=== PATIENT | male | born 1975 | race Hispanic/Latino ===

== ENCOUNTER 2024-01-29 12:00 | Emergency (ER) | payer OTHER, SELFPAY ==
[2024-01-29 12:01] VITALS: BP 135/84; PULSE 68; RESP 16; TEMP 36.8; O2SAT 99; BMI 28.6
--- NOTE | 2024-01-29 12:08 | EKG12_ITS ---
Test Reason : CP Blood Pressure : / mmHG Vent. Rate : 063 BPM Atrial Rate : 063 BPM P-R Int : 146 ms QRS Dur : 088 ms QT Int : 378 ms P-R-T Axes : 056 -17 016 degrees QTc Int : 386 ms Normal sinus rhythm Normal ECG Confirmed by HERIBERTO HALL, DALI ([id number]), movie editor KARINA KENNY ([id number]) on 02/01/2024 11:40:19 AM Referred By: Confirmed By:DALI LOUIS MD
--- NOTE | 2024-01-29 12:11 | NURSING ---
NO OLD EKGS
--- NOTE | 2024-01-29 12:24 | ED.VIS.CHEST ---
HPI History of Present Illness Chief Complaint: Chest Pain Detail of Chief Complaint: Left sided fleeting chest pain Informant: patient Onset/Context/Timing Onset: Yesterday Activity at onset: sudden and onset (Occurred at rest with first episode) Timing: Intermittent and Lasts (2 to 3 seconds) Quality: Positive for - (Electrical shock) Location: Left Chest Current Severity: Gone Maximum Severity: Mild Worsened By: Nothing Relieved By: Nothing Associated Symptoms: Positive for - (Patient does have history of heartburn. He takes medication daily.); Negative for Nausea, Vomiting, Diaphoresis, Dyspnea, Cough, Fever, Lightheadedness, Acid Reflux or Palpitations Narrative Narrative: Patient is a 48-year-old male. He is a non-smoker. He has no history of VTE or any risk factors for VTE. He presents with fleeting electrical shocklike symptoms left side the chest. He has no associated symptoms. Has no radiation. There is no history of trauma. He did have upper respiratory infectious symptoms 2 to 3 weeks ago. He denies nausea, vomit diarrhea. He denies any alleviating, precipitating or exacerbating factors. He denies GI symptoms i.e. change in bowels and specifically color or consistency or caliber. Prior Similar Symptoms: No Recent Illness/Hospitalization: No CVD Risk Factors: Negative for Hypertension, Diabetes, Hypercholesterolemia, Family History 1' </=55 or Smoking PE Risk Factors: Negative for Recent Travel/Surgery, Recent Immobilization, Prior DVT or PE, Cancer or OCP + Smoking + >/=35 TAD Risk Factors: Negative for Marfan's Syndrome, Hypertension or Family History [facility] Medical History (Updated 01/29/24 @ 12:[address] Jeffrey Melendrez MD) Heartburn Home Medications ?Medication ?Instructions ?Recorded ?Last Taken ?Type naproxen 500 mg tablet 500 mg PO BID #14 tabs 01/29/24 Unknown Rx Allergy/AdvReac Type Severity Reaction Status Date / Time No Known Allergies Allergy Verified 01/29/24 12:02 Social History (Updated 01/29/24 @ 12:[address] Jeffrey Melendrez MD) household members: spouse Smoking Status: Never smoker alcohol intake: current alcohol intake frequency: holidays/special occasions only ROS ROS ED Constitutional Constitutional ED: Denies chills, fever(s), subjective or sweats Eyes Eyes: Reports none ENT ENT ED: Denies rhinorrhea or sore throat Cardiovascular Cardiovascular: Reports as per HPI; Denies orthopnea or paroxysmal nocturnal dyspnea Respiratory/Chest Respiratory/Chest: Denies cough, dyspnea, dyspnea on exertion, orthopnea or paroxysmal nocturnal dyspnea Gastrointestinal Gastrointestinal: Denies abdominal pain, melena or nausea Integumentary Denies rash EXAM Physical Exam Const Vital Signs: 01/29/24 12:01 Temperature 98.2 F Temperature Source Oral Pulse Rate 68 Respiratory Rate 16 Blood Pressure 135/84 H Blood Pressure Mean 101 Pulse Ox 99 Oxygen Delivery Method Room Air Positive well nourished and well developed General Appearance ED: well developed and NAD; Negative for pallor HEENT Reports moist mucous membranes normocephalic and atraumatic Eyes PERRL and EOMs intact bilaterally General Eye ED: Negative for scleral icterus Neck no JVD Chest Wall Chest Narrative: Patient has reproducible pain left fourth fifth intercostal space. Resp normal respiratory effort and clear to auscultation bilaterally Cardio regular rate, regular rhythm, S1 normal heart sound, S2 normal heart sound and no murmurs GI normal to inspection, nondistended, normoactive bowel sounds, soft to palpation, non-tender, non-distended and no masses; Negative for hepatosplenomegaly Extremity normal to inspection Neuro oriented x3 and CN's II-XII intact bilaterally Sensorium / Orientation: awake and alert Psych mental status grossly normal Skin no rashes or lesions noted and no wounds General Skin Exam: Negative for pallor MDM MDM MDM Narrative Medical decision making narrative: Patient with atypical chest pain. Per nurse protocol EKG was obtained and initially interpreted by Dr. Morillo. Patient presently does not have pain. Patient's history is not consistent with cardiac disease. Patient's physical and history is consistent with costochondritis especially since he has pain ovation of the left fourth fifth intercostal space. Treatment is NSAIDs. Was discharged to home with appropriate home-going instruction. EKG Initial EKG: Attestation: I personally reviewed and interpreted this EKG as follows: Interpretation: Sinus Rhythm (Rate is 63. EKG is normal. HI interval is under 46 ms Rickers duration 88 ms. QT durations are 78 ms. [place] is normal.) Discharge Plan Triage Chief Complaint: Chest Pain ED Provider: Jeffrey Melendrez Dx/Rx/DC Orders Clinical Impression: Acute costochondritis, Heartburn Instructions: ED Chest Wall Pain, Costochondritis Prescriptions: New naproxen 500 mg tablet 500 mg PO BID Qty: 14 0RF Primary Care Provider: NOT,DEFINED Referrals: Debbie Moran [Non-Staff] - 1 Week if not improving NOT,DEFINED [Primary Care Provider] - Print Language: Icelandic Disposition Disposition: Home, Self Care
[2024-01-29 13:00] VITALS: BP 119/87; PULSE 62; RESP 18; TEMP 36.6; O2SAT 98
== END 2024-01-29 13:12 | disposition home or self-care (01) ==
LOC: ED 12:37
PROVIDERS: Emergency Provider Emergency Medicine; Visit Provider Emergency Medicine
DX: M94.0 Chondrocostal junction syndrome [Tietze] (principal); R12 Heartburn
CPT/HCPCS: 93005; 99282